=== PATIENT | male | born 1955 | race Two or more races ===

== ENCOUNTER 2018-04-30 21:04 | Observation (INO) | payer OTHER ==
[2018-04-30 21:15] VITALS: BP 140/74; PULSE 90; TEMP 98; BMI 17.3
--- NOTE | 2018-04-30 21:26 | PDOC ---
History of Present Illness - General History Source: Patient, Family Exam Limitations: No Limitations - History of Present Illness Initial Comments: 04/30/18 22:46 Patient is a 63 year old male with a significant past medical history of COPD, hypertension and GERD, who presents to the ED with complaints of left sided chest pain that began last night while at home. Patient reports sitting at home when he began to experience left sided chest pain that he states increases with inspiration. He reports waiting to see if it subsided, prompting him to come into the ED for further evaluation when it continued. Patient reports experiencing increased levels of stress recently stating he believe it to be the cause of the pain. Denies nausea, vomiting. Denies trauma to affected area. Denies contact with sick individuals, out of state travelling. Denies any other symptoms. Denies any other symptoms. Allergies: None Social history: Lives with daughters. Current smoker (10 cigarettes per day). No alcohol. No illicit drugs. Surgical history: None PMD: Dr. Tye Callejas 04/30/18 22:47 <Conor Levin - Last Filed: 04/30/18 22:47> <Deanne Eduardo - Last Filed: 05/01/18 00:47> - General Chief Complaint: Chest Pain Stated Complaint: CHEST PAIN;DIFFICULT TO BREATH Time Seen by Provider: 04/30/18 21:19 Past History <Conor Levin - Last Filed: 04/30/18 22:47> - Past Medical History GI Disorders: Yes (GERD) Hypercholesterolemia: Yes - Immunization History Immunization Up to Date: Yes - Suicide/Smoking/Psychosocial Hx Smoking History: Never smoked Have you smoked in the past 12 months: No Number of Cigarettes Smoked Daily: 10 Information on smoking cessation initiated: No 'Breaking Loose' booklet given: 04/07/14 Hx Alcohol Use: No Drug/Substance Use Hx: No <Deanne Eduardo - Last Filed: 05/01/18 00:47> - Past Medical History Allergies/Adverse Reactions: Allergies Allergy/AdvReac Type Severity Reaction Status Date / Time No Known Allergies Allergy Verified 04/30/18 21:15 Home Medications: Ambulatory Orders Atorvastatin Ca [Lipitor] 40 mg PO HS 07/08/16 Esomeprazole Magnesium [Nexium 24Hr] 22.3 mg PO BID 07/08/16 Aspirin [ASA -] 81 mg PO DAILY 04/30/18 Ibuprofen [Motrin -] 400 mg PO TID PRN 04/30/18 Review of Systems - Review of Systems Able to Perform ROS?: Yes Comments:: 04/30/18 22:46 GENERAL/CONSTITUTIONAL: No fever or chills. No weakness. HEAD, EYES, EARS, NOSE AND THROAT: No change in vision. No ear pain or discharge. No sore throat. CARDIOVASCULAR: +Left sided chest pain. +difficulty breathing. RESPIRATORY: No cough, wheezing, or hemoptysis. GASTROINTESTINAL: No nausea, vomiting, diarrhea or constipation. GENITOURINARY: No dysuria, frequency, or change in urination. MUSCULOSKELETAL: No joint or muscle swelling or pain. No neck or back pain. SKIN: No rash NEUROLOGIC: No headache, vertigo, loss of consciousness, or change in strength/ sensation. ENDOCRINE: No increased thirst. No abnormal weight change. HEMATOLOGIC/LYMPHATIC: No anemia, easy bleeding, or history of blood clots. ALLERGIC/IMMUNOLOGIC: No hives or skin allergy. <Conor Levin - Last Filed: 04/30/18 22:47> *Physical Exam - Vital Signs Last Vital Signs Temp Pulse Resp BP Pulse Ox 98.0 F 90 16 140/74 98 04/30/18 21:13 04/30/18 21:13 04/30/18 21:13 04/30/18 21:13 04/30/18 21:13 - Physical Exam Comments: 04/30/18 22:46 GENERAL: +Barrel chested. Awake, alert, and fully oriented, in no acute distress HEAD: No signs of trauma EYES: PERRLA, EOMI, sclera anicteric, conjunctiva clear ENT: Auricles normal inspection, hearing grossly normal, nares patent, oropharynx clear without exudates. Moist mucosa NECK: Normal ROM, supple, no lymphadenopathy, JVD, or masses LUNGS: Breath sounds equal, clear to auscultation bilaterally. No wheezes, and no crackles HEART: Regular rate and rhythm, normal S1 and S2, no murmurs, rubs or gallops ABDOMEN: Soft, nontender, normoactive bowel sounds. No guarding, no rebound. No masses EXTREMITIES: Normal range of motion, no edema. No clubbing or cyanosis. No cords, erythema, or tenderness NEUROLOGICAL: Cranial nerves II through XII grossly intact. Normal speech, normal gait SKIN: Warm, Dry, normal turgor, no rashes or lesions noted. <Conor Levin - Last Filed: 04/30/18 22:47> - Vital Signs Last Vital Signs Temp Pulse Resp BP Pulse Ox 98.0 F 90 16 140/74 98 04/30/18 21:13 04/30/18 21:13 04/30/18 21:13 04/30/18 21:13 04/30/18 21:13 <Deanne Eduardo - Last Filed: 05/01/18 00:47> Heart Score/ECG Review - ECG Intrepretation Rhythm: Regular Rhythm - Rittman Rittman: Normal - P and AR Delta Wave(s) Present: No WPW: No - ST and T Early Repolarization: No Non Specific ST-T Wave changes: No Flattened T Waves: No Prolonged Q-T Interval: No - ECG Impressions Normal ECG: Yes Non-specific ST Elevation: No Ischemic Changes: No <Deanne Eduardo - Last Filed: 05/01/18 00:47> ED Treatment Course - LABORATORY CBC & Chemistry Diagram: 04/30/18 22:00 04/30/18 22:00 - ADDITIONAL ORDERS Additional order review: Laboratory Results 04/30/18 04/30/18 04/30/18 22:00 22:00 21:40 PT with INR 11.60 INR 1.03 PTT (Actin FS) 30.0 Sodium 141 Potassium 3.9 Chloride 106 Carbon Dioxide 29 Anion Gap 6 L BUN 11 D Creatinine 0.8 D Creat Clearance w eGFR > 60 Random Glucose 71 L Calcium 8.4 L Total Bilirubin 0.4 AST 33 ALT 17 Alkaline Phosphatase 52 Creatine Kinase 854 H Troponin I < 0.02 Total Protein 6.2 L Albumin 3.7 Total Amylase 77 Lipase 111 04/30/18 22:00 RBC 4.96 MCV 81.2 MCHC 33.4 RDW 14.5 MPV 9.1 Neutrophils % 56.9 Lymphocytes % 30.8 Monocytes % 9.3 Eosinophils % 2.1 Basophils % 0.9 <Conor Levin - Last Filed: 04/30/18 22:47> - LABORATORY CBC & Chemistry Diagram: 04/30/18 22:00 04/30/18 22:00 <Deanne Eduardo - Last Filed: 05/01/18 00:47> Medical Decision Making - Medical Decision Making 04/30/18 22:33 Pt comes with left sided CP; cbc is normal Pt/INR normal; chem pending. EKG NSR. Pain began last night. Pt has issues with his younger daughter who is upsetting him; "stress at home" Pt's CXR is pending. Known 47year smoker; now down to 1/2 PPD; smoked more in the past. He has over 50packtear hx of smoking tobacco. Pulsox on RA is 100%. 04/30/18 22:52 CXR normal; trop is negative. CPK is elevated at 850; pt will be hydrated with a Liter of NSS 04/30/18 23:01 CK MB is elevated, but the MB% is normal. 05/01/18 00:37 Pt refusing to be admitted; he understands that he can be having a heart attack or heart injury. Refusing; daughter is with him and she is in agreement that pt should leave. 05/01/18 00:47 Both understand that he can return at any time for worsening pain. <Deanne Eduardo - Last Filed: 05/01/18 00:47> *DC/Admit/Observation/Transfer - Attestations Scribe Attestion: 04/30/18 22:47 Documentation prepared by Conor Levin, acting as medical or surgical instrument maker for Deanne Eduardo MD. <Conor Levin - Last Filed: 04/30/18 22:47> - Discharge Dispostion Decision to Admit order: No <Deanne Eduardo - Last Filed: 05/01/18 00:47> Diagnosis at time of Disposition: Chest pain, Dyspnea, Cardiac enzymes elevated - Discharge Dispostion Disposition: AGAINST MEDICAL ADVICE Condition at time of disposition: Guarded
[2018-04-30 22:03] LABS: BASO % 0.9 % (0-2.0); EOS % 2.1 % (0-4.5); HEMATOCRIT 40.3 % (35.4-49); HEMOGLOBIN 13.5 GM/dL (11.7-16.9); LYMPH % 30.8 % (8-40); MCH 27.1 pg (25.7-33.7); MCHC 33.4 g/dl (32.0-35.9); MEAN CELL VOLUME 81.2 fl (80-96); MEAN PLT VOLUME 9.1 fl (7.5-11.1); MONO % 9.3 % (3.8-10.2); NEUT % 56.9 % (42.8-82.8); PLATELET COUNT 146 K/MM3 (134-434); RBC 4.96 M/mm3 (4.00-5.60); RDW 14.5 % (11.9-15.9); WHITE BLOOD COUNT 5.8 K/mm3 (4.0-10.0)
[2018-04-30 22:18] LABS: INR 1.03 (0.82-1.09); PROTHROMBIN TIME (PATIENT) 11.6 SEC (9.7-13.0)
[2018-04-30 22:29] LABS: ALBUMIN 3.7 g/dl (3.4-5.0); AMYLASE 77 U/L (25-115); ANION GAP 6 (8-16); BILIRUBIN,TOTAL 0.4 mg/dL (0.2-1.0); BLOOD UREA NITROGEN 11 mg/dL (7-18); CALCIUM 8.4 mg/dL (8.5-10.1); CHLORIDE 106 mmol/L (98-107); CO2 29 mmol/L (21-32); CREATININE 0.8 mg/dL (0.7-1.3); GLUCOSE,RANDOM 71 mg/dL (74-106); LIPASE 111 U/L (73-393); POTASSIUM 3.9 mmol/L (3.5-5.1); SGOT/AST 33 U/L (15-37); SGPT/ALT 17 U/L (12-78); SODIUM 141 mmol/L (136-145); TOT PROT 6.2 g/dl (6.4-8.2)
[2018-04-30 22:32] LABS: ALK PHOS 52 U/L (45-117)
[2018-04-30] MEDS ORDERED: SODIUM CHLORIDE 0.9% 500 ML INFUS.BAG IV ONE (22:52)
[2018-04-30] MEDS ORDERED: ASPIRIN 81 MG CHEWABLE TABLETS PO ONE (23:05)
[2018-04-30] MEDS ORDERED: ASPIRIN 81 MG CHEWABLE TABLETS ONE (23:21)
[2018-04-30] MEDS ORDERED: ATORVASTATIN CA 40 MG TABLET (FP) PO SCH (23:23)
--- NOTE | 2018-04-30 23:34 | HP ---
CHIEF COMPLAINT: PCP: HISTORY OF PRESENT ILLNESS: ER course was notable for: (1) (2) (3) Recent Travel: PAST MEDICAL HISTORY: PAST SURGICAL HISTORY: Social History: Smoking: Alcohol: Drugs: Family History: Allergies No Known Allergies Allergy (Verified 04/30/18 21:15) HOME MEDICATIONS: Home Medications Medication Instructions Recorded Atorvastatin Ca [Lipitor] 40 mg PO HS 07/08/16 Esomeprazole Magnesium [Nexium 22.3 mg PO BID 07/08/16 24Hr] Aspirin [ASA -] 81 mg PO DAILY 04/30/18 Ibuprofen [Motrin -] 400 mg PO TID PRN 04/30/18 REVIEW OF SYSTEMS CONSTITUTIONAL: Absent: fever, chills, diaphoresis, generalized weakness, malaise, loss of appetite, weight change HEENT: Absent: rhinorrhea, nasal congestion, throat pain, throat swelling, difficulty swallowing, mouth swelling, ear pain, eye pain, visual changes CARDIOVASCULAR: Absent: chest pain, syncope, palpitations, irregular heart rate, lightheadedness , peripheral edema RESPIRATORY: Absent: cough, shortness of breath, dyspnea with exertion, orthopnea, wheezing, stridor, hemoptysis GASTROINTESTINAL: Absent: abdominal pain, abdominal distension, nausea, vomiting, diarrhea, constipation, melena, hematochezia GENITOURINARY: Absent: dysuria, frequency, urgency, hesitancy, hematuria, flank pain, genital pain MUSCULOSKELETAL: Absent: myalgia, arthralgia, joint swelling, back pain, neck pain SKIN: Absent: rash, itching, pallor HEMATOLOGIC/IMMUNOLOGIC: Absent: easy bleeding, easy bruising, lymphadenopathy, frequent infections ENDOCRINE: Absent: unexplained weight gain, unexplained weight loss, heat intolerance, cold intolerance NEUROLOGIC: Absent: headache, focal weakness or paresthesias, dizziness, unsteady gait, seizure, mental status changes, bladder or bowel incontinence PSYCHIATRIC: Absent: anxiety, depression, suicidal or homicidal ideation, hallucinations. PHYSICAL EXAMINATION Vital Signs - 24 hr 04/30/18 21:13 Temperature 98.0 F Pulse Rate 90 Respiratory 16 Rate Blood Pressure 140/74 O2 Sat by Pulse 98 Oximetry (%) GENERAL: Awake, alert, and fully oriented, in no acute distress. HEAD: Normal with no signs of trauma. EYES: Pupils equal, round and reactive to light, extraocular movements intact, sclera anicteric, conjunctiva clear. No lid lag. EARS, NOSE, THROAT: Ears normal, nares patent, oropharynx clear without exudates. Moist mucous membranes. NECK: Normal range of motion, supple without lymphadenopathy, JVD, or masses. LUNGS: Breath sounds equal, clear to auscultation bilaterally. No wheezes, and no crackles. No accessory muscle use. HEART: Regular rate and rhythm, normal S1 and S2 without murmur, rub or gallop. ABDOMEN: Soft, nontender, not distended, normoactive bowel sounds, no guarding, no rebound, no masses. No hepatomegaly or splenomegaly. MUSCULOSKELETAL: Normal range of motion at all joints. No bony deformities or tenderness. No CVA tenderness. UPPER EXTREMITIES: 2+ pulses, warm, well-perfused. No cyanosis. No clubbing. No peripheral edema. LOWER EXTREMITIES: 2+ pulses, warm, well-perfused. No calf tenderness. No peripheral edema. NEUROLOGICAL: Cranial nerves II-XII intact. Normal speech. Normal gait. PSYCHIATRIC: Cooperative. Good eye contact. Appropriate mood and affect. SKIN: Warm, dry, normal turgor, no rashes or lesions noted, normal capillary refill. Laboratory Results - last 24 hr 04/30/18 04/30/18 04/30/18 21:40 22:00 22:00 WBC 5.8 RBC 4.96 Hgb 13.5 Hct 40.3 MCV 81.2 MCH 27.1 MCHC 33.4 RDW 14.5 Plt Count 146 MPV 9.1 Absolute Neuts (auto) 3.3 Neutrophils % 56.9 Lymphocytes % 30.8 Monocytes % 9.3 Eosinophils % 2.1 Basophils % 0.9 Nucleated RBC % 0 PT with INR INR PTT (Actin FS) 30.0 Sodium 141 Potassium 3.9 Chloride 106 Carbon Dioxide 29 Anion Gap 6 L BUN 11 D Creatinine 0.8 D Creat Clearance w eGFR > 60 Random Glucose 71 L Calcium 8.4 L Total Bilirubin 0.4 AST 33 ALT 17 Alkaline Phosphatase 52 Creatine Kinase 854 H Creatine Kinase Index 1.0 CK-MB (CK-2) 8.981 H Troponin I < 0.02 Total Protein 6.2 L Albumin 3.7 Total Amylase 77 Lipase 111 04/30/18 22:00 WBC RBC Hgb Hct MCV MCH MCHC RDW Plt Count MPV Absolute Neuts (auto) Neutrophils % Lymphocytes % Monocytes % Eosinophils % Basophils % Nucleated RBC % PT with INR 11.60 INR 1.03 PTT (Actin FS) Sodium Potassium Chloride Carbon Dioxide Anion Gap BUN Creatinine Creat Clearance w eGFR Random Glucose Calcium Total Bilirubin AST ALT Alkaline Phosphatase Creatine Kinase Creatine Kinase Index CK-MB (CK-2) Troponin I Total Protein Albumin Total Amylase Lipase ASSESSMENT/PLAN: Hospitalist Screening - Colonoscopy Questionnaire Colonoscopy Questionnaire: Colonoscopy Questionnaire
[2018-04-30] MEDS ORDERED: ATORVASTATIN CA 40 MG TABLET (FP) ONE (23:53)
[2018-05-01] MEDS ORDERED: ASPIRIN 81 MG CHEWABLE TABLETS PO SCH (10:00)
--- NOTE | 2018-05-01 11:48 | EKG ---
Test Reason : Blood Pressure : / mmHG Vent. Rate : 088 BPM Atrial Rate : 088 BPM P-R Int : 180 ms QRS Dur : 070 ms QT Int : 364 ms P-R-T Axes : 081 079 073 degrees QTc Int : 440 ms NORMAL SINUS RHYTHM POSSIBLE LEFT ATRIAL ENLARGEMENT BORDERLINE ECG WHEN COMPARED WITH ECG OF 18-APR-2006 09:55, VENT. RATE HAS INCREASED BY 32 BPM Confirmed by MD Denzel, Christian ([id number]) on 05/01/2018 11:48:01 AM Referred By: Confirmed By:Christian Mahoney MD
== END 2018-05-01 01:14 | disposition left against medical advice (07) ==
LOC: JER 21:04 → JERBED 23:51 → INTOOBSV 23:51
PROVIDERS: ADMIT Internal Medicine; ATTEND Internal Medicine
PROC: 3E0337Z Introduction of Electrolytic and Water Balance Substance into Peripheral Vein, Percutaneous Approach (ICD-10-PCS; principal; 2018-04-30)
DX: R07.9 Chest pain, unspecified (principal); R74.8 Abnormal levels of other serum enzymes; I10 Essential (primary) hypertension; J44.9 Chronic obstructive pulmonary disease, unspecified; K21.9 Gastro-esophageal reflux disease without esophagitis; Z79.82 Long term (current) use of aspirin
CPT/HCPCS: 36415; 71046-TC-FY; 80053; 82150; 82550; 82553; 83690; 84484; 85025; 85610; 85730; 93005; 93010; 99281-25; G0378